=== PATIENT | female | born 1995 | race Caucasian/White ===

== ENCOUNTER 2023-10-20 20:47 | Emergency (ER) | payer MEDICAID ==
[~2023-10-20] VITALS: Ht 160 cm; Wt 68.0 kg
[2023-10-20] MEDS ORDERED: DEXAMETHASONE SOD PHOSPHATE 4 MG INJ ONE (21:45)
[2023-10-20] MEDS: DEXAMETHASONE SOD PHOSPHATE 4 MG INJ IM ONE (21:50)
[2023-10-20] MEDS ORDERED: PRED20TA PO (21:53)
[2023-10-20 22:06] VITALS: BP 100/72; TEMP 98; O2SAT 99
== END 2023-10-20 22:07 | disposition home or self-care (01) ==
LOC: ER 20:52
DX: T78.2XXA Anaphylactic shock, unspecified, initial encounter (principal); Z79.899 Other long term (current) drug therapy; Y92.89 Other specified places as the place of occurrence of the external cause
CPT/HCPCS: 99283; 96372; J1100; A4606; A4663